=== PATIENT | female | born 1980 | race Hispanic/Latino ===

== ENCOUNTER 2024-09-20 23:34 | Emergency (ER) | payer OTHER ==
[~2024-09-20] VITALS: Ht 154.9 cm; Wt 96.6 kg
--- NOTE | 2024-09-21 02:43 | ERN ---
General Chief Complaint: Mechanical Fall Stated Complaint: C/O PAIN TO RIGHT HAND AND RT WRIST AFTER FALL Time Seen by MD: 23:49 Time Seen by Midlevel: 23:49 Source: patient History of Present Illness Initial Comments 43-year-old female who presents to the emergency department due to right hand pain post fall. Patient reports she tripped and fell with her right hand outstretched attempting to catch herself. Denies further injuries, head injury, LOC, blood thinners use or further associated symptoms. PMHx DM, HTN Allergies: Coded Allergies: No Known Allergies (Unverified Allergy, Unknown, 09/20/24) Past Medical History Past Medical History: Diabetes-Type II, Hypertension Past Surgical History: None Female( History) LMP: Sep 13, 2024 ROS Dictation Constitutional: Negative for fever,chills, and weight loss Eyes: Negative for injury, pain,redness, and discharge ENT: Negative for injury,pain or swelling Cardiovascular: Negative for chest pain, palpitations, and edema Respiratory: Negative for shortness of breath, cough, and wheezing, Abdomen/GI: Negative for abdominal pain, nausea, vomiting, diarrhea, and constipation Back: Negative for injury and pain : Negative for painful urination, bleeding or discharge MS/Extremity: Positive for right wrist/hand pain Negative for injury and deformity Skin: Negative for rash, and discoloration Neuro: Negative for headache, weakness, numbness, tingling, and seizure Psych: Negative for suicide ideation, homicidal ideation, and hallucinations Physical Exam Physical Exam Dictation General: awake, alert, no acute distress Head/Face: Normocephalic, atraumatic Eyes: PERRL, EOMI, normal conjunctiva Neck: Supple, normal range of motion Cardiovascular: RRR, normal S1/S2 Skin: Warm, dry, normal turgor, no rash MS/Extremity: Pulses equal, no cyanosis, neurovascular intact, FROM. Right wrist limited range of motion restricted by pain, normal passive range of motion, mild tenderness to palpation of the right wrist, no obvious deformities noted. Neuro: COAx4, GCS 15, strength 5/5, CN 2-12 intact, normal cerebellar exam, normal gait Psych: Normal behavior, mood, and affect normal MDM MDM: Differential diagnosis: Fracture, dislocation, sprain, strain, scaphoid fracture Rationale: 31-year-old female who presents to the emergency department due to vaginal bleeding. Patient reports she previously took a test which was faintly positive. Patient reports last menstrual period was the end of July. The patient reports abdominal cramping but denies any dysuria, fevers or further associated symptoms. Denies significant past medical history. Per physical examination patient is in no acute distress, neurovascularly intact, mild tenderness to palpation of the wrist, no obvious deformities noted. Right wrist and hand x-rays obtained with no indications of fractures or dislocations noted. Patient was administered acetaminophen in the ED and placed on a volar splint. Patient was educated on findings and diagnosis. Advised to follow up with PCP. Return to the emergency department if any worsening symptoms. Patient verbalized understanding. Patient stable for discharge. There are no social concerns with this patient. I independently interpreted the test that were performed, results were reviewed by me and considered findings on radiology if ordered. Medical management and examination interpretation discussions were had by me with other qualified healthcare professionals as indicated for the patient's care. ED Course Orders Procedure Category Date Status Time Wrist Comp 3+Vws Rt RAD 09/20/24 Taken 23:42 Hand 3+Vws Rt RAD 09/20/24 Taken 23:42 Acetaminophen 500mg PHA 09/21/24 Complete Tab (Tylenol 500mg T 03:00 Volar Splint JAGUAR.ER 09/21/24 Complete 02:38 Current Medications Medications (Trade) Dose Ordered Sig/Bhavna Route PRN Reason Start Time Stop Time Status Last Admin Dose Admin Acetaminophen (TYLenol 500MG TAB) 1,000 mg ONCE ONCE PO 09/21/24 03:00 09/21/24 03:02 DC Vital Signs Date Time Temp Pulse Resp B/P (MAP) Pulse Ox O2 Delivery O2 Flow Rate FiO2 09/21/24 02:44 98.6 66 20 120/74 100 Room Air* 0 21 09/20/24 23:37 98.4 71 20 154/85 95 Room Air DX & DISP Disposition: Discharge Departure Impression: Primary Impression: Sprain of wrist, right Condition: Stable Additional Instructions: Discharge home. Rest. Follow up with primary care in 24 hours. Return to the ER for any acute changes or worsening symptoms. If any medications were prescribed take as directed. Okay to continue home medications unless otherwise discussed during your visit in the emergency room today. Patient was also advised to follow-up with primary care physician in 1 to 2 days for continued monitoring. Referrals: MADISON JONES (PCP) I performed the substantive portion of the visit. I have reviewed and personally made and approve the management plan that is documented in the notes by myself or the CHANTAL. I acknowledge full responsibility for the patient's management plan. JACINDA JASSO Sep 21, 2024 02:43
[2024-09-21] MEDS ORDERED: acetaMINOPHEN 500 MG TABLET PO ONE (03:00)
[2024-09-21 03:20] VITALS: BP 118/76; PULSE 72; RESP 16; TEMP 98.6; O2SAT 100
--- NOTE | 2024-09-21 10:07 | HMCIMG ---
RIGHT WRIST RADIOGRAPHS - 2 VIEWS INDICATION: Pain COMPARISON: None FINDINGS: AP, lateral views. No evidence for acute fracture or subluxation. Scaphoid bone is intact. Ulnar variance is within normal limits. Carpal alignment is well maintained. No radiopaque foreign body noted. IMPRESSION: No evidence for fracture or dislocation.
--- NOTE | 2024-09-21 10:09 | HMCIMG ---
RIGHT HAND RADIOGRAPHS - 3 VIEWS INDICATION: Pain after injury COMPARISON: None FINDINGS: AP, lateral, and oblique views. No acute fracture of subluxation identified. Scaphoid bone is intact. Carpal alignment and ulnar variance is within normal limits. No radiopaque foreign body noted. IMPRESSION: No evidence for fracture or subluxation.
== END 2024-09-21 03:25 | disposition home or self-care (01) ==
LOC: EDH 23:34
DX: S63.501A Unspecified sprain of right wrist, initial encounter (principal); E11.9 Type 2 diabetes mellitus without complications; I10 Essential (primary) hypertension; W01.0XXA Fall on same level from slipping, tripping and stumbling without subsequent striking against object, initial encounter; Y93.89 Activity, other specified; Y92.89 Other specified places as the place of occurrence of the external cause; Y99.8 Other external cause status
CPT/HCPCS: 29125; 73110; 73130; 99284

== ENCOUNTER 2025-01-17 21:41 | Emergency (ER) | payer OTHER ==
[~2025-01-17] VITALS: Ht 154.9 cm; Wt 98.0 kg
[2025-01-17] MEDS: HYDROcodone/APAP 5/325 1 TAB TABLET PO STA (22:04)
[2025-01-17] MEDS ORDERED: AMOX1TAB16 PO (22:57)
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
[2025-01-18 00:11] VITALS: BP 150/85; PULSE 72; RESP 18; TEMP 98.7; O2SAT 97
== END 2025-01-18 00:21 | disposition home or self-care (01) ==
LOC: EDH 21:41
DX: S51.831A Puncture wound without foreign body of right forearm, initial encounter (principal); S00.93XA Contusion of unspecified part of head, initial encounter; E11.9 Type 2 diabetes mellitus without complications; I10 Essential (primary) hypertension; Y04.1XXA Assault by human bite, initial encounter; Y93.89 Activity, other specified; Y92.89 Other specified places as the place of occurrence of the external cause; Y99.8 Other external cause status
CPT/HCPCS: 70450; 90471; 90714; 96372; 99285; J1885